=== PATIENT | female | born 1970 | race Two or more races ===

== ENCOUNTER 2024-08-26 02:47 | Emergency (ER) | payer MEDICAID, SELFPAY ==
[2024-08-26 03:01] VITALS: BMI 23.8
[2024-08-26 03:02] VITALS: PULSE 100; RESP 18; O2SAT 100
[2024-08-26 03:03] VITALS: BP 107/75; PULSE 93; RESP 19; TEMP 36.8; O2SAT 96
--- NOTE | 2024-08-26 03:03 | EDNOTE_ITS ---
ED Psych RME/HPI General Chief Complaint: Suicidal Stated Complaint: MENTAL EVAL Time Seen by Provider: 08/26/24 03:03 Source: patient and EMS Arrival date/time: 08/26/24 02:47 Mode of arrival: ambulatory Limitations: no limitations RME / HPI RME / HPI Narrative: Dr. Villegas?s Main ED Evaluation: 53-year-old female is brought to the ED via ambulance on a 5150 psychiatric hold for evaluation of suicidal ideation. Per [facility] documentation, the patient has repeatedly contacted crisis services, stating she intends to end her life tonight. She has verbalized plans, means, and intent to drink herself to and has refused to engage in a safety plan, including prior noncompliance with a previously established plan. She is also noncompliant with her psychiatric medications. The patient has a psychiatric history significant for major depressive disorder (MDD), generalized anxiety disorder (YU), and bipolar disorder, with a history of medication nonadherence. Upon ED evaluation, she reaffirms her initial statement, stating she called for mental health assistance because she wanted to drink herself to . 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 Currently, she remains cooperative but continues to express suicidal ideation and would like to seek mental health help. Related Data Previous Rx's ?Medication ?Instructions ?Recorded diazepam 5 mg tablet 5 mg PO BID PRN alcohol with drawal 03/15/22 #10 tabs Allergies Allergy/AdvReac Type Severity Reaction Status Date / Time No Known Allergies Allergy Verified 03/15/22 14:13 Review of Systems Review of Systems Systems Reviewed: All systems reviewed, normal except as documented Past Medical History Social History SMOKING STATUS: Former smoker ED Exam Narrative Physical exam: PSYCHL Disorganized thought process, expressing suicidal ideation with persistent depressive affect. Depressed, dysphoric mood with restricted affect. Limited insight into the severity of her condition; impaired judgment as evidenced by repeated suicidal statements and refusal of a safety plan. Cooperative but emotionally distressed; no agitation or aggression observed at this time. General Limitations: Present no limitations General appearance: Present alert and in no apparent distress Head Head exam: Present atraumatic Eye Eye exam: Present normal appearance, PERRL and EOMI ENT ENT exam: Present normal exam, normal oropharynx and mucous membranes moist Neck Neck exam: Present normal inspection, full ROM and trachea midline Chest Chest inspection: Present normal inspection and symmetric chest wall rise Respiratory Respiratory exam: Present normal lung sounds bilaterally Cardiovascular Cardiovascular exam: Present regular rate, normal rhythm and normal heart sounds Abdominal Exam Abdominal exam: Present soft and normal bowel sounds Extremities Exam Extremities exam: Present normal inspection and full ROM Back Exam Back exam: Present normal inspection and full ROM Neurological Exam Neurological exam: Present alert, oriented X3 and CN II-XII intact Psychiatric Psychiatric exam: Present depressed and suicidal ideation Expanded Psychiatric Exam Expanded psych exam: Present restlessness and flight of ideas Skin Skin exam: Present warm, dry, intact and normal color Course Quality Measures none Orders Category Date Time Status 1799 Psychiatric Hold NOW Care 08/26/24 03:15 Ordered Acetaminophen Stat Lab 08/26/24 03:47 Completed Alcohol, Blood Medical Stat Lab 08/26/24 03:47 Completed Basic Metabolic Panel Stat Lab 08/26/24 03:47 Completed CBC Stat Lab 08/26/24 03:47 Completed CBC Stat Lab 08/26/24 05:09 Ordered Drug Screen,Urine Stat Lab 08/26/24 03:18 Completed Salicylate Stat Lab 08/26/24 03:47 Completed Potassium Chloride [K-Dur] Med 08/26/24 04:25 Discontinued 40 meq PO X1 ONE Vital Signs Vital signs: Vital Signs Temperature 98.2 F 08/26/24 03:03 Pulse Rate 93 08/26/24 03:03 Respiratory Rate 19 08/26/24 03:03 Blood Pressure 107/75 08/26/24 03:03 Pulse Oximetry (%) 96 08/26/24 03:03 Oxygen Delivery Method Room Air 08/26/24 03:03 Psych MDM Narrative MDM Narrative:: 0[address] signed out to Dr. Fields. Past medical, surgical, social and family history reviewed. Vitals and home medications reviewed. Results and treatment plan discussed. I will assume the care of the patient at this time and will follow the patient, pending mental health evaluation. Please refer to the emergency department record for history and examination from initial visit. The following addendum documentation note is intended to reflect any pending information, findings, or radiology results not included in the patient?s initial chart. Patient was placed in observation for treatment and monitoring of psychiatric symptoms, 08/26/2024. Symptoms consist of suicidal ideation and depression. Treatment plan includes psychiatric consult, reassessments, and possible placement into psychiatric facility. The patient had access and provided personal hygiene, shower, food, water, and daily medications. Scribe Attestation: I, Sara Rajan, am scribing for and in the presence of Dr. Villegas. Provider Notation: Although this document has been carefully reviewed, there may still be some phonetic and other typographical errors. These errors are purely grammatical due to imperfections in the software program and should not be construed in any way to compromise the substance of the patient's medical care during this visit. Patient data External records reviewed:: [facility] previous records Clinical information provided by:: patient and law enforcement Social determinants that could affect healthcare access:: mental health Patient has the following chronic illnesses:: major depressive disorder (MDD), generalized anxiety disorder (YU), and bipolar disorder, with a history of medication nonadherence How is presenting disease/condition affected by chronic disease/condition?: exacerbated by Evaluation data The following diagnostics were reviewed and interpreted by me:: lab results Lab and/or radiology exams considered but not ordered:: na Interpretation Summary: WBC 2.9 Medications / Prescriptions Medications or Prescriptions considered but not ordered:: na Medication administrations:: Medication Administration History Discontinued Medications Potassium Chloride (Potassium Chloride 20 Meq Tabcr) 40 meq PO X1 ONE Stop: 08/26/24 04:26 Last Admin: 08/26/24 05:15 Dose: 40 meq Documented By: EF as above, if any Consultations Consultation(s) initiated? (list below): Yes Consultation #1 (Physician, Specialty, Details): Mental health 0700 Diagnosis Psych Differential Diagnosis: acute psychosis, suicidal ideation, bipolar disorder and depression Most likely diagnosis given after review of the tests above:: see clinical impression Admission Indicated Admission indicated?: not indicated Admission Request Was there a request for admission?: No Disposition Plan Disposition Plan: other (specify) (signout pending mental health eval) Discharge Plan Prescriptions/Referrals Prescriptions/Med Rec: No Action diazepam 5 mg tablet 5 mg PO BID PRN (Reason: alcohol withdrawal) Qty: 10 0RF Referrals: No Primary/Family,Physician [Referring Provider] - In 1 week Problem List Clinical Impression: Suicidal ideation Patient/Caregiver Discharge Instructions Print Language: Bermudian
--- NOTE | 2024-08-26 03:26 | PC.NURSE ---
PATIENT BIBA FOR SI. PATIENT STATES SHE WANTS TO DRINK HERSELF TO AND NEVER WAKE UP. PATIENT STATES SHE HAS BEEN DRINKING A LOT MORE THESE PAST DAYS AND CONSTANTLY THINKS OF ENDING HER LIFE STATING SHE DOESNT KNOW WHO SHE IS ANYMORE. PATIENT STATES SHE HAS PREVIOUSLY TRIED HANGING HERSELF.
[2024-08-26 03:58] LABS: Basophils % (Auto) 1 % (0-2.5); Eosinophils % (Auto) 0 % (0-10); Hematocrit 35.8 % (36.0-46.0); Hemoglobin 12.1 g/dL (12.0-16.0); Immature Granulocytes % (Auto) 0 % (0-0); Immature Granulocytes Auto 0.01 Thou/mm3 (0.00-0.00); Lymphocytes # (Auto) 1.4 Thou/mm3 (1.0-4.8); Lymphocytes % (Auto) 48 % (10-50); Mean Corpuscular HGB Conc 33.8 g/dl (31.0-37.0); Mean Corpuscular Hemoglobin 31.8 pg (25.0-35.0); Mean Corpuscular Volume 94 fL (80-100); Monocytes # (Auto) 0.3 Thou/mm3 (0.0-0.8); Monocytes % (Auto) 11 % (0-12); Neutrophils # (Auto) 1.2 Thou/mm3 (1.8-7.7); Neutrophils % (Auto) 40 % (37-80); Nucleated Red Blood Cell % 0 /100 WBC (0); Platelet Count 127 Thou/mm3 (140-440); RDW Standard Deviation 55.8 fL (36.4-46.3)
[2024-08-26 04:05] LABS: White Blood Count 2.9 Thou/mm3 (3.6-11.0)
[2024-08-26 04:23] LABS: Amphetamine/Methamp Scrn,U Negative (Negative); Barbiturate Screen,Urine Negative (Negative); Benzodiazepines Screen,Urine Negative (Negative); Benzoylecgonine Screen, Ur Negative (Negative); Fentanyl Screen,Urine Negative (Negative); Opiate Screen,Urine Negative (Negative); THC Screen,Urine Negative (Negative)
[2024-08-26 04:23] LABS: Acetaminophen < 2.0 mcg/mL (10.0-20.0); Anion Gap 11 (7-16); BUN/Creatinine Ratio 12 Ratio (12-20); Blood Urea Nitrogen 7 mg/dL (9-23); Calcium 7.4 mg/dL (8.3-10.6); Carbon Dioxide 26.6 mMol/L (20.0-31.0); Chloride 109 mMol/L (98-107); Creatinine (Component) 0.6 mg/dL (0.6-1.3); Estimated Creatinine Clearance 86.7 mL/min (>60); Glucose 113 mg/dL (74-106); Osmolality,Calculated 291 (275-295); Potassium 3.1 mMol/L (3.4-5.1); Salicylate < 3.0 mg/dL; Sodium 147 mMol/L (136-145); eGFR > 60 See Note
[2024-08-26 04:25] LABS: Alcohol, Blood Medical > 300.0 mg/dL (0-10.0)
[2024-08-26] MEDS: POTASSIUM CHLORIDE 20 mEq TABCR 40 MEQ PO (05:15)
--- NOTE | 2024-08-26 06:08 | PD.EDADDENDU ---
Emergency Room Addendum <Yvonne Turk - Last Filed: 08/26/24 06:10> Addendum Narrative: 0600: Care assumed from Dr. Villegas, the previous shift emergency physician. Past medical, surgical, social and family history reviewed. Vitals and home medications reviewed. I will assume the care of the patient at this time, pending mental health evaluation and final disposition. The patient was placed in ED observation care at 08/26/2024 at 0600 hours. The patient was placed in ED observation care pending behavioral health evaluation. The patients past medical history, social history, and family history were reviewed. The plan of care will include serial examinations. Please refer to the emergency department record for history and examination.? While in ED observation the patient will have access to water, food, and personal hygiene. If the patient takes home medication(s), they will be continued in ED observation. Physical exam by me shows patient under no acute distress at this time. <Lyric Fields MD - Last Filed: 08/26/24 09:06> Addendum Narrative: 0600: Care assumed from Dr. Villegas, the previous shift emergency physician. Past medical, surgical, social and family history reviewed. Vitals and home medications reviewed. I will assume the care of the patient at this time, pending mental health evaluation and final disposition. The patient was placed in ED observation care at 08/26/2024 at 0600 hours. The patient was placed in ED observation care pending behavioral health evaluation. The patients past medical history, social history, and family history were reviewed. The plan of care will include serial examinations. Please refer to the emergency department record for history and examination.? While in ED observation the patient will have access to water, food, and personal hygiene. If the patient takes home medication(s), they will be continued in ED observation. Physical exam by me shows patient under no acute distress at this time. Abdomen is nondistended. Lungs no accessory muscle use. Skin is moist. Neuro answering questions, moving all extremities, no focal deficits. 0900: Per social media marketing manager patient is excepted to [facility]. Accepting physician is Dr. Pantoja. Patient is stable for transfer.
[2024-08-26 06:36] VITALS: BP 137/75; PULSE 99; RESP 17; TEMP 37.2; O2SAT 95
[2024-08-26] MEDS: MAGNESIUM OXIDE 400 MG TABLET PO (06:49)
--- NOTE | 2024-08-26 07:32 | PC.CC ---
Patient is a 53 year-old female BIBA from home on a 5150-Hold for Danger to self from [facility] Angelica Hawkins. The patient reported suicidal ideations with plan to drink herself to and intention. ASWKeisha made [id number] contact with patient. ASW introduced self, role, and reason for visit.?Patient appeared alert and oriented to self, location, and situation.?ASW disclosed limits of confidentiality as well. P Patient made eye contact during assessment. Patient mood appeared depressed throughout assessment and tearful; her behavior appeared disinhibited with flat affect. Thought process was linear and organized. Patient reports she continuously has suicidal ideations with plan to overdose on medications available to her. Patient reports she has had a prior suicide attempt but does not recall when or how, but was placed on a 5150-hold. Patient reports she has not slept in several days and she cannot stop her mind. Patient reports she has been excessively drinking fireball the past month to help her cope with her depression and pain. Patient stated, I just want to go to sleep and not wake up. Per patient, she has mental health diagnosis of Bipolar Disorder, General Anxiety, and Major Depressive Disorder. She is not compliant iw medication and is not connected to out patient mental health services. Patient reports she has not taken psychotropic medications since July 2023. Patient did not provide consent to make contact with family or friend to gain collateral information. Upon clinical consultation with INTAKE CLERKSharmin patient's 5150-hold will be upheld. ASW, provided discharge plan to Dr. Fields, air traffic coordinator Sara, and ALEXUS Mason. ASW to send referral to [facility] facilities via [employer].
[2024-08-26 08:52] VITALS: BP 124/85; PULSE 92; RESP 16; TEMP 36.7; O2SAT 95
--- NOTE | 2024-08-26 09:00 | PC.CC ---
Patient was accepted to [facility] by psychiatrist, Dr. Pantoja into unit E. Chela change control coordinator provided accepting information. ASW provided accepting information to patient. ASW provided update discharge plan to Dr. Fields, business objects developer Sara, and ALEXUS Mason. LEONIDESWKeisha to arrange transportation.
== END 2024-08-26 11:05 ==
PROVIDERS: Emergency Medicine; Emergency Provider Emergency Medicine; PCP Family Medicine
DX: R45.851 Suicidal ideations (principal); Z91.148 Patient's other noncompliance with medication regimen for other reason; F41.1 Generalized anxiety disorder; F31.9 Bipolar disorder, unspecified
CPT/HCPCS: 36415; 80048; 80307; 80320; 80329; 85025; 90839; 96127; 99285; A9270; G0480

== ENCOUNTER 2025-01-09 18:10 | Emergency (ER) | payer MEDICAID, SELFPAY ==
[2025-01-09 18:21] VITALS: PULSE 89; RESP 18; O2SAT 98; BMI 26.5
[2025-01-09 18:29] VITALS: BP 100/69; PULSE 99; RESP 19; TEMP 36.8; O2SAT 96
--- NOTE | 2025-01-09 18:50 | PC.NURSE ---
Addendum entered by Dominga Mancia RN 01/09/25 19:13: TRIAGE NURSE ABOUT TO GET REPORT FROM THE NOTARY PUBLIC WHEN PT DECIDED SHE DID NOT WANT TO STAY. Original Note: PT DECIDED SHE DOES NOT WANT TO STAY AND SIGNED OUT AMA.
== END 2025-01-09 19:13 | disposition left against medical advice (07) ==
PROVIDERS: Emergency Provider Emergency Medicine
DX: Z53.21 Procedure and treatment not carried out due to patient leaving prior to being seen by health care provider (principal)
CPT/HCPCS: 99282